=== PATIENT | male | born 1980 | race Caucasian/White ===

== ENCOUNTER 2017-10-23 09:28 | Outpatient (CLI) | payer BC ==
--- NOTE | 2017-10-23 12:59 | RAD ---
CERVICAL SPINE THREE VIEWS: HISTORY: A 37-year-old male with neck pain and cervical radiculopathy. FINDINGS: Exam includes neutral, flexion, and extension upright lateral views of the cervical spine. C6-C7 and C7-T1 are obscured to partially obscured on the lateral views. No prevertebral soft tissue swelling . No malalignment. No evidence for significant anterior retrolisthesis or abnormal translation betw een flexion and extension in the visualized cervical spine. IMPRESSION: Unremarkable visualized cervical spine. POS: LAURY
== END 2017-10-23 09:29 | disposition home or self-care (01) ==
LOC: TBSIIMAG 09:28
PROVIDERS: ATTEND Neurological Surgery
DX: M54.12 Radiculopathy, cervical region (principal)
CPT/HCPCS: 72040